=== PATIENT | male | born 1960 | race African-American/Black ===

== ENCOUNTER 2016-06-11 10:04 | Inpatient (IN) | payer MEDICARE, MEDICAID ==
[~2016-06-11] VITALS: Ht 172.7 cm; Wt 68.6 kg
[2016-06-11] MEDS ORDERED: SODIUM CHLORIDE 0.9% 100 ML IV ONE (11:11)
[2016-06-11] MEDS ORDERED: CEFTRIAXONE 1 GM VIAL ONE (11:11)
[2016-06-11] MEDS ORDERED: SODIUM CHLORIDE 0.9% 1,000 ML ONE ×2 (11:12→12:32)
[2016-06-11] MEDS ORDERED: MORPHINE 2 MG/ML SYR ONE (12:32)
[2016-06-11] MEDS ORDERED: SALINE FLUSH 10 ML FLUSH PRN (13:35)
[2016-06-11] MEDS ORDERED: ONDANSETRON 4 MG VIAL IV PUSH PRN (13:35)
[2016-06-11] MEDS ORDERED: LACT RINGERS 1,000 ML IV ONE ×3 (13:35→14:55)
[2016-06-11] MEDS: PIPERACIL/TAZO 3.375GM/50ML 50 ML IV SCH ×3 (14:12→23:06)
[2016-06-11] MEDS ORDERED: **NOTE TO NURSE XX SCH (14:15)
[2016-06-11] MEDS ORDERED: MISSING DOSE XX ONE (16:20)
[2016-06-11 16:50] VITALS: Ht 172.7 cm; Wt 68.6 kg
[2016-06-11 16:51] VITALS: BP_SYST 105; BP_SYST 95; RESP 18; TEMP 97.4
[2016-06-11] MEDS ORDERED: TAMSULOSIN 0.4 MG CAP PO SCH (17:07)
[2016-06-11] MEDS: FLUTICASONE 0.05% NA BTL NARE EACH SCH (17:41)
[2016-06-11] MEDS: OXYCODONE 5 MG TAB PO PRN (17:42)
[2016-06-11] MEDS: LACT RINGERS 1,000 ML IV SCH (17:53)
[2016-06-11] MEDS: MORPHINE 2 MG/ML SYR IV PRN ×2 (18:50→23:06)
[2016-06-11 19:30] VITALS: BP_SYST 120; RESP 18; TEMP 97.8
[2016-06-11] MEDS: DOCUSATE SOD 100 MG CAP PO SCH (19:44)
[2016-06-11] MEDS: SALINE FLUSH 10 ML FLUSH SCH (19:44)
[2016-06-11] MEDS: PREGABALIN 25 MG CAP PO SCH (19:44)
[2016-06-11 23:28] VITALS: BP_SYST 108; RESP 16; TEMP 97.7
[2016-06-12] MEDS: OXYCODONE 5 MG TAB PO PRN ×6 (01:07→22:27)
[2016-06-12] MEDS ORDERED: ONDANSETRON 4 MG VIAL ONE (01:31)
[2016-06-12] MEDS ORDERED: DILAUDID 1 MG/ML AMP ONE (01:31)
[2016-06-12] MEDS ORDERED: SODIUM CHLORIDE 0.9% 1,000 ML ONE (01:31)
[2016-06-12 04:29] VITALS: BP_SYST 102; RESP 18; TEMP 96.7
[2016-06-12] MEDS: SODIUM CHLORIDE 0.9% FLUSH BAG 500 ML IV SCH (05:27)
[2016-06-12] MEDS: PIPERACIL/TAZO 3.375GM/50ML 50 ML IV SCH ×4 (05:28→23:39)
[2016-06-12] MEDS: MORPHINE 2 MG/ML SYR IV PRN ×5 (05:29→22:27)
[2016-06-12 08:18] VITALS: BP_SYST 118; RESP 18; TEMP 97.2
[2016-06-12] MEDS ORDERED: ALU/MAG/SIM 30 ML UDC PO PRN (08:30)
[2016-06-12] MEDS: SALINE FLUSH 10 ML FLUSH SCH ×2 (08:53→21:01)
[2016-06-12] MEDS: FLUTICASONE 0.05% NA BTL NARE EACH SCH (08:53)
[2016-06-12] MEDS: PREGABALIN 25 MG CAP PO SCH ×2 (08:54→21:00)
[2016-06-12] MEDS: FAMOTIDINE 20 MG TAB PO SCH ×2 (08:54→20:59)
[2016-06-12 09:30] VITALS: BP_SYST 118; RESP 18; TEMP 98.5
[2016-06-12] MEDS: LACT RINGERS 1,000 ML IV SCH ×2 (10:09→22:26)
[2016-06-12 11:30] VITALS: BP_SYST 110; RESP 18; TEMP 97.7
[2016-06-12 15:08] VITALS: BP_SYST 112; RESP 18; TEMP 97.6
[2016-06-12] MEDS: TAMSULOSIN 0.4 MG CAP PO SCH (18:31)
[2016-06-12] MEDS: DOCUSATE SOD 100 MG CAP PO SCH (21:00)
[2016-06-12 23:00] VITALS: BP_SYST 109; RESP 18; TEMP 98.4
[2016-06-13] MEDS: MORPHINE 2 MG/ML SYR IV PRN ×6 (02:45→22:50)
[2016-06-13] MEDS: OXYCODONE 5 MG TAB PO PRN ×6 (02:46→22:50)
[2016-06-13 03:28] VITALS: BP_SYST 130; RESP 18; TEMP 98.1
[2016-06-13] MEDS: SODIUM CHLORIDE 0.9% FLUSH BAG 500 ML IV SCH (05:22)
[2016-06-13] MEDS: PIPERACIL/TAZO 3.375GM/50ML 50 ML IV SCH (06:04)
[2016-06-13] MEDS: SALINE FLUSH 10 ML FLUSH SCH ×2 (08:00→20:00)
[2016-06-13] MEDS: PREGABALIN 25 MG CAP PO SCH ×2 (08:37→19:35)
[2016-06-13] MEDS: FAMOTIDINE 20 MG TAB PO SCH ×2 (08:37→19:35)
[2016-06-13] MEDS ORDERED: POTASSIUM PHOSPHATE 45 MMOL in SODIUM CHLORIDE 0.9% 500 ML IV ONE (08:40)
[2016-06-13 08:57] VITALS: BP_SYST 142; RESP 16; TEMP 98.7
[2016-06-13] MEDS: SACCHA BOULARDII 250MG CAP PO SCH ×3 (09:55→19:34)
[2016-06-13] MEDS: CEFTRIAXONE 2 GM in SODIUM CHLORIDE 0.9% 50 ML IV SCH (09:56)
[2016-06-13] MEDS: KCL CR 20 MEQ TAB PO SCH ×3 (09:56→19:35)
[2016-06-13] MEDS ORDERED: MISSING DOSE XX ONE (10:00)
[2016-06-13 11:44] VITALS: BP_SYST 148; RESP 16; TEMP 98.4
[2016-06-13] MEDS: K PHOS 500 MG PO SCH ×2 (11:53→17:54)
[2016-06-13] MEDS: FLUTICASONE 0.05% NA BTL NARE EACH SCH (11:53)
[2016-06-13] MEDS: ACETAMINOPHEN 325 MG TAB PO PRN ×3 (14:21→22:55)
[2016-06-13 15:09] VITALS: BP_SYST 138; RESP 16; TEMP 98.3
[2016-06-13] MEDS: TAMSULOSIN 0.4 MG CAP PO SCH (18:42)
[2016-06-13] MEDS: DOCUSATE SOD 100 MG CAP PO SCH (19:35)
[2016-06-13 19:48] VITALS: BP_SYST 129; RESP 16; TEMP 97.6
[2016-06-13 23:12] VITALS: BP_SYST 153; RESP 18; TEMP 97.6
[2016-06-14] MEDS: MORPHINE 2 MG/ML SYR IV PRN ×3 (02:35→11:53)
[2016-06-14] MEDS: OXYCODONE 5 MG TAB PO PRN ×3 (02:36→10:07)
[2016-06-14] MEDS: SODIUM CHLORIDE 0.9% FLUSH BAG 500 ML IV SCH (03:51)
[2016-06-14 04:05] VITALS: BP_SYST 137; RESP 18; TEMP 98
[2016-06-14 07:28] VITALS: BP_SYST 147; RESP 16; TEMP 98.1
[2016-06-14] MEDS: CEFTRIAXONE 2 GM in SODIUM CHLORIDE 0.9% 50 ML IV SCH (08:03)
[2016-06-14] MEDS: SALINE FLUSH 10 ML FLUSH SCH (08:03)
[2016-06-14] MEDS: PREGABALIN 25 MG CAP PO SCH (09:00)
[2016-06-14 09:18] VITALS: BP_SYST 147; RESP 16; TEMP 98.1
[2016-06-14] MEDS: KCL CR 20 MEQ TAB PO SCH (09:32)
[2016-06-14] MEDS: K PHOS 500 MG PO SCH ×2 (09:33→12:49)
[2016-06-14] MEDS: SACCHA BOULARDII 250MG CAP PO SCH (09:33)
[2016-06-14] MEDS: FAMOTIDINE 20 MG TAB PO SCH (09:33)
[2016-06-14] MEDS: MAGNESIUM SULF 1 GM/100 ML 100 ML IV SCH ×2 (09:34→12:15)
[2016-06-14] MEDS: FLUTICASONE 0.05% NA BTL NARE EACH SCH (09:35)
[2016-06-14 11:07] VITALS: BP_SYST 130; RESP 16; TEMP 97.8
== END 2016-06-14 13:43 | disposition home or self-care (01) | DRG 698 ==
LOC: ENRESERVDT → ENRESERVTM → CANRESERV → ER 10:04 → ENPENDDIS 13:33 → EMR 13:33 → 4THE 16:09 → 5THE 06-12 09:45
PROVIDERS: ADMIT Family Medicine; ATTEND Family Medicine
DX: T83.518A Infection and inflammatory reaction due to other urinary catheter, initial encounter (principal); A41.9 Sepsis, unspecified organism; R65.20 Severe sepsis without septic shock; N17.9 Acute kidney failure, unspecified; N39.0 Urinary tract infection, site not specified; B96.20 Unspecified Escherichia coli [E. coli] as the cause of diseases classified elsewhere; R19.7 Diarrhea, unspecified; E83.52 Hypercalcemia; M06.9 Rheumatoid arthritis, unspecified; M19.90 Unspecified osteoarthritis, unspecified site; I10 Essential (primary) hypertension; N40.0 Benign prostatic hyperplasia without lower urinary tract symptoms; B19.20 Unspecified viral hepatitis C without hepatic coma; F17.210 Nicotine dependence, cigarettes, uncomplicated; E87.6 Hypokalemia; E83.42 Hypomagnesemia; E83.39 Other disorders of phosphorus metabolism
CPT/HCPCS: 36415; 71010; 74176; 80048; 80053; 81001; 82550; 83605; 83690; 83735; 84100; 84145; 85007; 85025; 85027; 87040; 87077; 87088; 87186; 87299; 87493; 87804; 93005; 96361; 96365; 96367; 96375; 99223; 99233; 99239